=== PATIENT | female | born 1995 | race Caucasian/White ===

== ENCOUNTER 2017-05-30 16:22 | Emergency (ER) | payer SELFPAY ==
[~2017-05-30] VITALS: Ht 167.6 cm; Wt 101.6 kg
[2017-05-30 16:35] VITALS: BP 143/80
--- NOTE | 2017-05-30 16:39 | NUR ---
UA COLLECTED AND SENT TO LAB. PT SENT TO LOBBY TO WAIT FOR A BED OR OVERFLOW CHAIR.
[2017-05-30 20:15] LABS: APPEARANCE,URINE CLEAR (CLEAR); BILIRUBIN,URINE NEGATIVE (NEGATIVE); BLOOD, URINE 3+ (NEGATIVE); COLOR,URINE YELLOW (YELLOW); LEUKOCYTE ESTERASE ,URINE 1+ (NEGATIVE); NITRITE, URINE NEGATIVE (NEGATIVE); UGLUCOSE NEGATIVE (NEGATIVE)
--- NOTE | 2017-05-30 20:19 | NUR ---
PATIENT PRESENTS TO ED WITH lower back pain since yesterday . PT STATES she was seen in urgent care earlier today and reffered to ER . DENIES N/V/D; SKIN IS PINK/WARM/DRY; AAOX4 WITH EVEN AND STEADY GAIT; LUNGS CLEAR BL; HR EVEN AND REGULAR; PT DENIES ANY FEVER, CP, SOB, OR COUGH AT THIS TIME; PATIENT STATES PAIN OF 7/10 AT THIS TIME; VSS; PATIENT POSITIONED FOR COMFORT; HOB ELEVATED; BEDRAILS UP X2; BED DOWN. ER MD MADE AWARE OF PT STATUS.
[2017-05-30] MEDS ORDERED: NACL 0.9% 1,000 ML IV ONE (20:20)
[2017-05-30] MEDS ORDERED: KETOROLAC 30 MG/ML VIAL IVP ONE (20:20)
[2017-05-30] MEDS ORDERED: KETOROLAC 60 MG/2 ML VIAL IM ONE (20:25)
[2017-05-30 20:26] LABS: RBC,URINE 3-10 (FEW) /HPF (0-5)
[2017-05-30 20:56] VITALS: BP 129/83
--- NOTE | 2017-05-30 20:57 | NUR ---
Patient discharged with v/s stable. Written and verbal after care instructions given and explained. Patient alert, oriented and verbalized understanding of instructions. Ambulatory with steady gait. All questions addressed prior to discharge. ID band removed. Patient advised to follow up with PMD. Rx of MOTRIN 800MG, MACROBID 100MG given. Patient educated on indication of medication including possible reaction and side effects. Opportunity to ask questions provided and answered.
== END 2017-05-30 20:57 | disposition home or self-care (01) ==
LOC: MED 16:22
DX: M54.5 Low back pain (principal)
CPT/HCPCS: 81001; 81025; 87086; 99284; J1885